=== PATIENT | male | born 1955 | race Caucasian/White ===

== ENCOUNTER 2021-11-20 16:36 | Observation (INO) ==
[2021-11-20 19:40] LABS: Bacteria,Urine Few per hpf (None-Few); Bilirubin,Urine Negative (Negative); Blood,Urine Negative (Negative); Clarity,Urine Clear (Clear); Color,Urine Light-Yellow (Yellow); Glucose,Urine (UA) >=1000 mg/dL (Normal); Ketones,Urine Trace mg/dL (Negative); Leukocyte Esterase,Urine Negative (Negative); Mucus,Urine Few per lpf (None-Few); Nitrite,Urine Negative (Negative); Protein,Urine Negative (Neg-Trace); RBC,Urine 0-3 per hpf (0-3); Specific Gravity,Urine 1.019 (1.010-1.025); Sperm,Urine Present per hpf (None Seen); Squamous Epithelial Cell,Urine Few per hpf (None-Few); Urobilinogen,Urine Normal (Normal); WBC,Urine 0-3 per hpf (0-3)
[2021-11-20] MEDS ORDERED: *HR* LORazepam 2 MG/ML VIAL IVP ONE (21:16)
[2021-11-20] MEDS ORDERED: Iopamidol - 370 500 ML MLS IVP ONE (21:17)
[2021-11-20 21:57] LABS: Basophils % 0.3 %; Hematocrit 35.6 % (37.5-50.1); Hemoglobin 11.9 g/dL (12.9-16.9); Immature Granulocytes % 0.3 % (0-4); Lymphocytes % 8.5 %; Mean Corpuscular HGB Conc 33.4 g/dL (31.6-35.5); Mean Corpuscular Hemoglobin 28.3 pg (28.0-33.3); Mean Corpuscular Volume 84.8 fL (83.0-100.0); Mean Platelet Volume 9.4 fL (9.4-12.4); Monocytes # 0.2 K/mcL (0.0-1.3); Monocytes % 2.1 %; Platelet Count 282 K/mcL (140-400); Red Cell Distribution Width 13.1 % (11.5-14.5); Segmented Neutrophils % 88.8 %; White Blood Count 11.2 K/mcL (4.3-11.1)
[2021-11-20 22:16] LABS: Potassium 4.1 mEq/L (3.5-5.1)
[2021-11-20] MEDS ORDERED: Ondansetron 4 MG/2 ML VIAL IVP ONE (22:21)
[2021-11-20] MEDS ORDERED: *HR* HYDROmorphone (PF) 1 MG/ML SYRINGE IVP ONE (23:04)
[2021-11-21] MEDS ORDERED: 0.9 % Sodium Chloride 1,000 ML IVC ONE (00:57)
[2021-11-21] MEDS ORDERED: Metoclopramide 10 MG/2 ML VIAL IVP ONE (01:15)
[2021-11-21] MEDS ORDERED: Naloxone 0.4 MG/ML INJ IVP PRN (02:28)
[2021-11-21] MEDS ORDERED: D5% in Water 1,000 ML IVC PRN (02:45)
[2021-11-21] MEDS ORDERED: Dextrose Gel 15 GM/37.5 ML TUBE PO PRN ×2 (02:45)
[2021-11-21] MEDS ORDERED: *HR* Dextrose 50 % in Water (Syg) 50 ML SYRINGE IVP PRN (02:45)
[2021-11-21] MEDS: *HR* HYDROmorphone (PF) 1 MG/ML SYRINGE IVP PRN ×5 (03:21→22:12)
[2021-11-21 06:18] LABS: Basophils % 0.2 %; Hemoglobin 11.5 g/dL (12.9-16.9); Mean Corpuscular HGB Conc 31.9 g/dL (31.6-35.5); Mean Corpuscular Hemoglobin 27.9 pg (28.0-33.3); Mean Platelet Volume 10.1 fL (9.4-12.4); Red Blood Count 4.12 M/mcL (4.19-5.50); Red Cell Distribution Width 13.5 % (11.5-14.5)
[2021-11-21 06:20] LABS: Eosinophils % 0.1 %; Immature Granulocytes % 0.3 % (0-4); Immature Platelets 4.4 % (1.1-6.1); Lymphocytes # 1.4 K/mcL (0.6-4.6); Lymphocytes % 13.4 %; Mean Corpuscular Volume 87.4 fL (83.0-100.0); Monocytes # 0.5 K/mcL (0.0-1.3); Monocytes % 4.9 %; Neutrophils # 8.6 K/mcL (1.6-8.9); Platelet Count 268 K/mcL (140-400); Segmented Neutrophils % 81.1 %; White Blood Count 10.6 K/mcL (4.3-11.1)
[2021-11-21 06:29] LABS: INR 0.9
[2021-11-21 06:35] LABS: Activated Partial Thrombo Time 20.2 Seconds (26.0-36.0)
[2021-11-21 06:39] LABS: Albumin 4.3 g/dL (3.5-5.7); Albumin/Globulin Ratio 1.6 (1.1-2.2); Bilirubin,Total 0.4 mg/dL (0.3-1.0); Calcium 9.2 mg/dL (8.6-10.3); Globulin 2.7 g/dL (2.4-3.5); Magnesium 1.8 mg/dL (1.6-2.6); Phosphorous 3.5 mg/dL (2.7-4.5)
[2021-11-21 06:41] LABS: Platelet Estimate Normal (Normal)
[2021-11-21] MEDS: Ondansetron 4 MG/2 ML VIAL IVP PRN ×2 (07:34→16:53)
[2021-11-21] MEDS: 0.9 % Sodium Chloride 1,000 ML IVC SCH ×2 (08:14→17:21)
[2021-11-21] MEDS: Insulin LISPRO 300 UNITS/3 ML VIAL SUBQ SCH ×3 (14:48→19:40)
[2021-11-21] MEDS: *HR* LORazepam 2 MG/ML VIAL IVP PRN (21:05)
[2021-11-22] MEDS: MetroNIDAZOLE 500 MG/100 ML 500 MG/100 ML BAG IVPB SCH ×3 (00:42→15:18)
[2021-11-22] MEDS: Insulin LISPRO 300 UNITS/3 ML VIAL SUBQ SCH ×3 (00:42→15:06)
[2021-11-22] MEDS: *HR* LORazepam 2 MG/ML VIAL IVP PRN ×2 (03:10→09:09)
[2021-11-22] MEDS: *HR* HYDROmorphone (PF) 1 MG/ML SYRINGE IVP PRN ×4 (05:44→21:53)
[2021-11-22 08:35] LABS: Basophils % 0.4 %; Eosinophils % 0.4 %; Hematocrit 34.6 % (37.5-50.1); Hemoglobin 11.4 g/dL (12.9-16.9); Immature Granulocytes % 0.5 % (0-4); Lymphocytes # 1.5 K/mcL (0.6-4.6); Lymphocytes % 15.1 %; Mean Corpuscular HGB Conc 32.9 g/dL (31.6-35.5); Mean Corpuscular Hemoglobin 28.4 pg (28.0-33.3); Mean Corpuscular Volume 86.1 fL (83.0-100.0); Mean Platelet Volume 10.2 fL (9.4-12.4); Monocytes # 0.7 K/mcL (0.0-1.3); Monocytes % 6.8 %; Neutrophils # 7.8 K/mcL (1.6-8.9); Platelet Count 249 K/mcL (140-400); Red Blood Count 4.02 M/mcL (4.19-5.50); Red Cell Distribution Width 13.4 % (11.5-14.5); Segmented Neutrophils % 76.8 %; White Blood Count 10.2 K/mcL (4.3-11.1)
[2021-11-22 08:42] LABS: BUN/Creatinine Ratio 13 (6-26); Blood Urea Nitrogen 17 mg/dL (8-23); Carbon Dioxide 25 mEq/L (23-29); Chloride 104 mEq/L (98-107); Glucose 150 mg/dL (70-105); Osmolality,Calculated 288 (280-300); Potassium 3.8 mEq/L (3.5-5.1); Sodium 137 mEq/L (136-145); eGFR For African Americans > 60 (> 60); eGFR For Non-African Americans 54 (> 60)
[2021-11-22] MEDS: Ondansetron 4 MG/2 ML VIAL IVP PRN (09:08)
[2021-11-22] MEDS: *HR* LORazepam 2 MG/ML VIAL IVP SCH ×2 (15:05→20:56)
[2021-11-22] MEDS: *HR* Glimepiride 2 MG TABLET PO SCH (20:56)
[2021-11-22] MEDS ORDERED: Insulin LISPRO 300 UNITS/3 ML VIAL SUBQ SCH (21:00)
[2021-11-23] MEDS: MetroNIDAZOLE 500 MG/100 ML 500 MG/100 ML BAG IVPB SCH ×2 (00:24→10:04)
[2021-11-23] MEDS: *HR* HYDROmorphone (PF) 1 MG/ML SYRINGE IVP PRN ×4 (02:12→16:10)
[2021-11-23 03:26] LABS: Basophils % 0.4 %; Eosinophils # 0.2 K/mcL (0.0-0.6); Hematocrit 34.5 % (37.5-50.1); Hemoglobin 11.1 g/dL (12.9-16.9); Immature Granulocytes % 0.2 % (0-4); Lymphocytes # 2.6 K/mcL (0.6-4.6); Lymphocytes % 31.2 %; Mean Corpuscular HGB Conc 32.2 g/dL (31.6-35.5); Mean Corpuscular Hemoglobin 28.2 pg (28.0-33.3); Mean Corpuscular Volume 87.6 fL (83.0-100.0); Mean Platelet Volume 9.6 fL (9.4-12.4); Monocytes # 0.9 K/mcL (0.0-1.3); Neutrophils # 4.6 K/mcL (1.6-8.9); Platelet Count 240 K/mcL (140-400); Red Blood Count 3.94 M/mcL (4.19-5.50); Red Cell Distribution Width 13.4 % (11.5-14.5); Segmented Neutrophils % 55.2 %; White Blood Count 8.4 K/mcL (4.3-11.1)
[2021-11-23 04:01] LABS: BUN/Creatinine Ratio 12 (6-26); Blood Urea Nitrogen 16 mg/dL (8-23); Calcium 9.1 mg/dL (8.6-10.3); Carbon Dioxide 23 mEq/L (23-29); Chloride 104 mEq/L (98-107); Glucose 103 mg/dL (70-105); Osmolality,Calculated 287 (280-300); Potassium 3.8 mEq/L (3.5-5.1); Sodium 138 mEq/L (136-145); eGFR For African Americans > 60 (> 60); eGFR For Non-African Americans 54 (> 60)
[2021-11-23] MEDS ORDERED: Insulin LISPRO 300 UNITS/3 ML VIAL SUBQ SCH (07:30)
[2021-11-23] MEDS ORDERED: Fenofibrate 54 MG TABLET PO SCH (09:00)
[2021-11-23] MEDS ORDERED: *HR* Pioglitazone 15 MG TABLET PO SCH (09:00)
[2021-11-23] MEDS ORDERED: Aspirin Enteric Coated 81 MG Tablet PO SCH (09:00)
[2021-11-23] MEDS: *HR* LORazepam 2 MG/ML VIAL IVP SCH (10:00)
[2021-11-23] MEDS: *HR* Glimepiride 2 MG TABLET PO SCH (10:04)
[2021-11-23 10:36] VITALS: PULSE 88
[2021-11-23] MEDS ORDERED: ALPRAZolam 1 MG TABLET PO SCH (15:00)
[2021-11-23 15:10] VITALS: BP 132/74; TEMP 98.1; O2SAT 96
== END 2021-11-23 16:46 | disposition home or self-care (01) ==
LOC: 3BNU 16:36 → EMEROOARM 16:36 → SUATTDRO 11-21 13:18 → 3ANU 11-21 13:20
PROVIDERS: ADMIT Internal Medicine; ATTEND Internal Medicine